=== PATIENT | female | born 1930 | race Caucasian/White ===

== ENCOUNTER 2020-07-14 10:27 | Emergency (ER) | payer OTHER ==
[~2020-07-14] VITALS: Ht 157.5 cm; Wt 55.8 kg
--- NOTE | 2020-07-14 10:27 | NUR ---
REILLY ZAMORA FROM [facility] VIA EMS AND PLACED IN BED 4.
[2020-07-14 10:29] VITALS: BP 174/69
--- NOTE | 2020-07-14 10:30 | NUR ---
SERA FROM [facility], STAFF REPORTS NOTICING PROTRUSION OF VAGINAL AREA TODAY. PATIENT DENIES ANY PAIN AT SITE. PMH:DM, HTN, DEMENTIA, DEPRESSION ALLERGIES: LOVASTATIN
[2020-07-14] MEDS ORDERED: DONE10TA10 PO (10:38)
[2020-07-14] MEDS ORDERED: LEVO0.124 PO (10:42)
[2020-07-14] MEDS ORDERED: METF500T PO (10:42)
[2020-07-14] MEDS ORDERED: ESCI10TA PO (10:42)
[2020-07-14] MEDS ORDERED: LISI-487 PO (10:42)
[2020-07-14] MEDS ORDERED: DIT5 PO (10:42)
[2020-07-14] MEDS ORDERED: QUET25TA PO (10:42)
--- NOTE | 2020-07-14 10:48 | NUR ---
Dr. Petersen is evaluating the patient at bedside.
[2020-07-14] MEDS ORDERED: CIPR500T4 PO (11:29)
[2020-07-14 12:10] VITALS: BP 138/80
== END 2020-07-14 12:10 ==
LOC: MED 10:27
DX: N81.6 Rectocele (principal); N39.0 Urinary tract infection, site not specified; E11.9 Type 2 diabetes mellitus without complications; F03.90 Unspecified dementia, unspecified severity, without behavioral disturbance, psychotic disturbance, mood disturbance, and anxiety; I10 Essential (primary) hypertension; Z88.8 Allergy status to other drugs, medicaments and biological substances; Z79.899 Other long term (current) drug therapy
CPT/HCPCS: 81002; 99283; C1758